=== PATIENT | male | born 1995 | race Caucasian/White ===

== ENCOUNTER 2025-06-27 10:22 | Emergency (ER) | payer OTHER, SELFPAY ==
[2025-06-27 10:39] VITALS: BP 132/76; PULSE 59; RESP 18; TEMP 36.5; O2SAT 97
--- OUTSIDE RECORDS SUMMARY | 2025-06-27 10:48 | XMS_ITS | Clinical Summary ---
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 sx's resolved once medication was stopped. Penicillin VRash12/15/20147199KpsahplqdmoJgpb47/13/2010 Medications MedicationSigDispense QuantityRefillsLast FilledStart DateEnd DateStatus oxyCODONE (ROXICODONE) 5 mg immediate release tablet Indications:Acute left-sided low back pain without sciaticaTake 1 Tablet (5 mg) by mouth every 6 hours if needed for Pain. 10 Tablet 5Active lidocaine 5 % topical patch Indications:Acute left-sided low back pain without sciaticaApply to intact skin to cover most painful area for max 12hr per 24hr period. 30 Patch 5Active methocarbamoL 500 mg tablet Indications:Acute left-sided low back pain without sciaticaTake 1 Tablet (500 mg) by mouth four times daily. 30 Tablet 5Active Active Problems No known active problems Resolved Problems ProblemNoted DateDiagnosed DateResolved DateRight shoulder dislocation on 02/02/1408Adjustment disorder with depressed mood12/04/2012 10/16/2018Routine infant or child health check Immunizations ImmunizationAdministration DatesNext XieUFK4101/21/2003,10/10/1998,01/13/1998, 1997,1997Hepatitis B (Peds)01/13/1998,1997,1997 Inactivated Polio Lkjnohn3201/21/2003,10/10/1998,1997,1997 MENINGOCOCCAL VACCINE 2 VIAL 2MO-55YO (MENVEO)09/22/2013MMR01/21/2003,10/10/1998 Tdap1Varicella Ysjvbru0605/02/2011,07/28/2009 Family History Medical HistoryRelationNameCommentsHypertensionFatherAnesthesia ProblemNeg. DiabetesPaternal GrandmotherHeart attackNo Family HistoryRelationNameStatus CommentsFatherAliveMotherAliveNeg.Paternal Grandmother Social History Tobacco UseTypesPacks/DayYears UsedDateSmoking Tobacco: Every DayCigarettes0.37 Started: 07/10/2018Smokeless Tobacco: Current Tobacco Cessation:Ready to Q uit: No; Counseling Given: Yes Comments:smokes 1 pack per week and uses e-cigarette daily Alcohol UseStandard Drinks/WeekCommentsYes0 (1 standard drink = 0.6 oz pure alcohol)Interpersonal SafetyAnswerDate RecordedAre you being hit, kicked, pushed or yelled at (see row info)?No08/25/2024Interpersonal Safety Abuse 12 - 18Not on file08/25/2024Interpersonal Safety Ambulatory VulnerabilityNot on file08/25/2024 Sex and Gender InformationValueDate RecordedSex Assigned at BirthNot on file Legal LhfOqbp5907/20/2012 5:47 AM CSTGender IdentityNot on fileSexual Orientation Not on file Last Filed Vital Signs Vital SignReadingTime TakenCommentsBlood Arzcmefh076/8102 9:45 PM MEDICAL EDUCATION SPECIALIST Jzkpn6517/19/2025 9:45 PM LPBEwwwvkdnazx69.7 ??C (98 ??F)08/25/2024 9:45 PM MEDICAL EDUCATION SPECIALIST Respiratory Meub412808/25/2024 9:45 PM CSTOxygen Cngmsvvdlg45%08/25/2024 9:45 PM CSTInhaled Oxygen Concentration--Zhlcza867.9 kg (240 lb)08/25/2024 9:43 PM MEDICAL EDUCATION SPECIALIST Vnfmqu722.8 cm (5' 10)08/25/2024 9:43 PM CSTBody Mass Index34.44008/25/2024 9:43 PM MEDICAL EDUCATION SPECIALIST Plan of Treatment Health MaintenanceDue DateLast DoneCommentsHIV for age 15-6506/23/2012Hepatitis C screening for age 18-7906/23/2015Tetanus tfinmdw03Depression screening for age 12+BMI (ht and wt on same day) for age 18+ , 10/16/2018, 11/14/2017, Additional history existsHPV series for age 9-45 (1 - 3-dose SCDM series)2024OVID-19 vaccine series ( - 2024- season)2025Influenza Vaccine (#1)2025Hepatitis B series for 19+Mzydtvcvz18/10/1998, 1997, 1997Pneumococcal series for age 6-49Aged OutNo longer eligible based on patient's age to complete this topic Insurance * Guarantor: MILAD BLUNTAccount TypeRelation to PatientDate of BirthPhone Billing AddressPersonal/Rebjda7609/03/1969 [address] [place] [address] * Guarantor: [employer] MALVIN TALENTAccount TypeRelation to Patient Date of BirthPhoneBilling AddressOcc Health/KlukHkysovwj16/01/2001 [address] [address] * Guarantor: [employer] PXAccount TypeRelation to PatientDate of PhoneBilling AddressOcc Health/OybvWcchajhg80/01/2001 x106 (Home) ATTN: SHANICE CONNOLLY [address] [address] Care Teams Team MemberRelationshipSpecialtyStart DateEnd Date Sarmad Noyola MD [facility] [place] [address] PCP - GeneralFamily Practice12/18/12 Shanice Chauhan, PhD, LP [facility] [place] [address] PsychologistPsychology12/18/12
--- OUTSIDE RECORDS SUMMARY | 2025-06-27 10:48 | XMS_ITS | Clinical Summary ---
Author Organization [facility] Address [address] [place] [address] Care Team Providers Care Supervisor Pairing And Inspecting Name Role Phone Hakan Cole MD Primary Care Provider [phone] Source Comments You are receiving this document as you are listed as the primary care provider,follow-up provider, or the patient has been referred to you for consultation.This is in compliance with the Medicare andAdena Pike Medical Centercaid EHR Incentive Program,which states Providers who transition their patient to another setting of careor provider of care or refers their patient to another provider of care shouldprovide summary care record for each transition of care or referral. [facility] Allergies Active AllergyReactionsCriticalityNoted DateCommentsCephalosporinsHeadache, Nausea,IgwzrkiyGumemz12/10/2009 sx's reported by mother. sx's resolved once medication was stopped. Medications MedicationSigDispense QuantityRefillsLast FilledStart DateEnd DateStatus Ibuprofen (ADVIL) 200 MG capsule Take 200 mg by mouth every 6 hours as needed for Pain.Active azithromycin (AKA ZITHROMAX) 250 MG tablet Take by mouth. Take two tablets on the first day, and take one tablet each day on days 2-5 6 Tab ctive unknown medication Indications: PN:06/13/2005Active Active Problems ProblemNoted DateDiagnosed DateSubjective visual zghdimlttcs52/20/2011 Overview (04/06/2015): Epic Elevated SGOT (AST)06/22/2010 Overview (06/22/2010): Noted June 2010. Maybe related to viral illness or nonspecific, normal variant. Recommend rechecking in 6-12 months. Immunizations ImmunizationAdministration DatesNext CuhLHbC0001/21/2003,01/21/2003,10/10/1998, 10/10/1998,01/13/1998,01/13/1998,1997,1997,1997,1997HepB Ped/Adol (0-18 yrs)01/13/1998,01/13/1998,1997,1997,1997, 1997IPV (Polio)01/21/2003,1997,1997MMR01/21/2003,01/21/2003, 10/10/1998,10/10/1998OPV, Trivalent (Orimune or tOPV)01/21/2003,10/10/1998, 10/10/1998,1997,1997Tdap13356Esdozftwy86/22/2010 Family History Medical HistoryRelationNameCommentsDiabetes, Type IIPaternal GrandmotherRelation NameStatusCommentsPaternal Grandmother Social History Tobacco UseTypesPacks/DayYears UsedDateSmoking Tobacco: NeverSmokeless Tobacco: NeverAlcohol UseStandard Drinks/WeekCommentsNot Asked0 (1 standard drink = 0.6 oz pure alcohol)Sex and Gender InformationValueDate RecordedSex Assigned at BirthNot on fileLegal RnfLaal62/10/2012 5:58 AM CDTGender IdentityNot on file Sexual OrientationNot on file Last Filed Vital Signs Vital SignReadingTime TakenCommentsBlood Foksqher287/5401 8:06 AM SCHOOL PLANT CONSULTANT Oqxib789707/20/2010 8:06 AM KBRYlyawbvwzfu06.1 ??C (97 ??F)09/17/2010 9:12 AM CDT Respiratory Rate--Oxygen Saturation--Inhaled Oxygen Concentration--Bxrver86.8 kg (176 lb)09/17/2010 9:12 AM EKFVonaiz398.9 cm (5' 6.5)07/13/2010 8:34 AM CSTBody Mass Index-- Plan of Treatment Health MaintenanceDue DateLast DoneCommentsHep C Screening (Preventive Services) 1997Varicella Vaccine (2 of 2 - 2-dose childhood series)10/20/2009 07/28/2009HIV Screening (Preventive Services)2013dult Preventive Visit 2015DTaP/Tdap/Td Vaccine (7 - Tdap), 01/21/2003, 01/21/2003, Additional history existsCOVID-19 Vaccine ( - 2024- season) 2025Influenza Vaccine (#1)2025Zoster/Shingles Vaccine (1 of 2) 2047HepB YdavaodPvpchdlan94/10/1998, 01/13/1998, 1997, Additional history existsIPV (Polio) AaqgffcSovvmutff72/18/2003, 01/21/2003, 10/10/1998, Additional history existsHPV Vaccine (No Doses Required)CompletedHepA Vaccine Aged OutNo longer eligible based on patient's age to complete this topicHib VaccineAged OutNo longer eligible based on patient's age to complete this topic MCV4 VaccineAged OutNo longer eligible based on patient's age to complete this topicMeningococcal B VaccineAged OutNo longer eligible based on patient's age to complete this topicPneumococcal VaccineAged OutNo longer eligible based on patient's age to complete this topic Insurance [place] [id number] * Guarantor: Lissette Reynoso TypeRelation to PatientDate of BirthPhone Billing AddressPersonal/UoswvlQzxytp12/[birth year]/[address] [place] [address] Care Teams Team MemberRelationshipSpecialtyStart DateEnd Date Hakan Cole MD [address] [facility] [place] [id number] PCP - General07/13/10
--- NOTE | 2025-06-27 10:52 | CRLHL7_ITS ---
For Patients: As a result of the Cures Act, medical imaging exams and procedure reports are released immediately into your electronic medical record. You may view this report before your referring provider. If you have questions, please contact your health care provider. Indication: Fall, landed on rain midtrachea, redness and pain Technique: Volumetric multidetector CT images of the cervical soft tissues were obtained after the administration of low osmolar intravenous contrast. 110 cc Isovue 370 low osmolar intravenous contrast Comparison: None available. Findings: The partially visualized brain parenchyma is normal in attenuation without evidence of abnormal enhancement. The orbits and their contents are within normal limits. The paranasal sinuses are clear. The mastoid air cells are clear. The nasopharynx is unremarkable. The fossae of Rosenmuller are clear. Mild prominence of the palatine tonsils is incidentally noted. Evaluation of the oropharynx is limited by motion artifact. The hypopharynx is clear. The deep spaces of the neck are otherwise preserved. There is demonstration of mild asymmetry of the vocal folds with a prominent left laryngeal ventricle. The thyroid gland is normal in attenuation. There is no evidence of pathologically enlarged cervical lymph node. Mild degenerative changes of the cervical spine without acute osseous abnormality. The lung apices are clear. The cervical vertebral body heights are grossly maintained with mild straightening of the normal cervical lordosis. There is no significant spondylolisthesis. Impression: No definite evidence of obvious acute traumatic injury of the neck. Patent airway. Incidental note made of prominence of the left laryngeal ventricle which can be associated with vocal fold dysfunction. Correlate with history of hoarseness. Please note that all CT scans at this facility use dose modulation, iterative reconstruction, and/or weight-based dosing when appropriate to reduce radiation dose to as low as reasonably achievable. Dictated by Leonardo Chen MD @ 06/27/2025 11:46:07 AM (Electronically Signed)
--- NOTE | 2025-06-27 10:55 | ED.GENADULT ---
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 had a bowel movement. He was reaching back to flush, kind of got tunnel vision lightheaded and next thing he knew he woke up on the floor. His says he was out for a minute or 2. There was a floor drain and a garbage can on the floor and he landed with his neck on the floor drain. He has a red peggy across his neck which he thinks is from the garbage can but pain is primarily over the mid trachea which is not in line with where this red peggy is. He also has a couple of red liu on the side of his right upper chest kind of by just above his clavicle, he has in quite sure what made those liu but he does not have any pain there. He passes out every once a while, usually with rapid position changes. He does not have any chest pain or difficulty breathing, headache. Has not had any recent illness or injury aside from today. He tried to go to work but has ongoing pain in his neck and it hurts to swallow. No breathing difficulties. General health is good. Related Data Home Medications ?Medication ?Instructions ?Recorded ?Confirmed No Known Home Medications 06/27/25 06/27/25 Allergies Allergy/AdvReac Type Severity Reaction Status Date / Time Penicillins Allergy Severe Verified 06/27/25 11:30 Review of Systems Status of ROS: Reports: 6 or more systems reviewed and unremarkable except as noted in History and below Exam Narrative: Exam Narrative: Vital signs reviewed In general, an alert, nontoxic young man. Voice is normal. Head: Normocephalic, atraumatic. Eyes: Sclera clear. Pupils equal and reactive. ENT: Mucous membranes moist. Throat is normal, airways patent. Neck: Supple without adenopathy. He has a red linear peggy that runs from the right side of his neck across to about the carotid on the left. He does not have any tenderness over the carotids, no swelling or redness there. He does have focal tenderness of the trachea. There is no palpable defect, no crepitus, no swelling or hematoma. No stridor. Heart: Regular rate and rhythm without murmur. Lungs: Clear. No increased work of breathing, crackles or wheezes. Neurologic: Alert, conversant. Speech fluent, face symmetric. Moves all extremities equally. Skin: Warm, dry well perfused. Affect: Normal. Const: Vital Signs, click to edit/add: Vital Signs - 24 hr 06/27/25 10:39 Temperature 97.7 F Pulse Rate [Right Pulse Oximeter] 59 L Respiratory Rate 18 Blood Pressure [Ri ght Upper Arm] 132/76 Pulse Oximetry 97 Oxygen Delivery Me thod Room Air Course Course ED Course: Patient presents with anterior neck trauma related to a syncopal episode this morning. The syncopal episode sounds benign likely vasovagal in nature, will get an EKG. With regard to his throat trauma, it has been about 6 hours, there is no evidence of expanding hematoma or airway compromise. I do think imaging is warranted to look for any more subtle injuries to the trachea. I reviewed his CT scan, I did not see any abnormal swelling or obvious traumatic injuries. Radiology reads his scan is essentially negative, they note prominence of the left laryngeal ventricle which can be associated with vocal fold dysfunction, which can be associated with hoarseness. Patient's voice is normal, I think this is likely an incidental finding of no current clinical significance. With regard to his syncope, he had an EKG which by my review shows a regular bradycardia, ventricular rate of 57. His QT corrected is 443, indices are normal, no acute ST segment changes and no significant T-wave abnormalities. His P-wave is deflected downward throughout the inferolateral leads. I have discussed all this with him. We talked about ibuprofen and Tylenol, ice as needed. Reviewed reasons to return such as swelling of the neck, any difficulty breathing, inability to swallow secretions, or other worsening. I this would include recurrent syncope. In the meantime, I am going to put a ZIO patch on. This episode today still sounds most likely be vasovagal but with his EKG findings would just like to make sure he is not having any other arrhythmias. Recommend primary care follow-up following that to review results and see if any other evaluation such as echo would be warranted. I have him off work for the next few days so that he can rest and recover. Diagnosis: Anterior neck contusion. Syncope. Abnormal EKG. Vital Signs Vital signs: Initial Vital Signs Temperature 97.7 F 06/27/25 10:39 Temperature Source Temporal Artery Scan 06/27/25 10:39 Pulse Rate 59 L 06/27/25 10:39 Pulse Rhythm Regular 06/27/25 10:39 Pulse Strength 3+ Normal 06/27/25 10:39 Respiratory Rate 18 06/27/25 10:39 Blood Pressure 132/76 06/27/25 10:39 Blood Pressure Mean 94 06/27/25 10:39 Blood Pressure Position Sitting 06/27/25 10:39 Pulse Oximetry 97 06/27/25 10:39 Oxygen Delivery Method Room Air 06/27/25 10:39 Vital Signs Temperature 97.7 F 06/27/25 10:39 Pulse Rate 59 L 06/27/25 10:39 Respiratory Rate 18 06/27/25 10:39 Blood Pressure 132/76 06/27/25 10:39 Pulse Oximetry 97 06/27/25 10:39 Oxygen Delivery Method Room Air 06/27/25 10:39 Temperature 97.7 F 06/27/25 10:39 Pulse Rate 59 L 06/27/25 10:39 Respiratory Rate 18 06/27/25 10:39 Blood Pressure 132/76 06/27/25 10:39 Pulse Oximetry 97 06/27/25 10:39 Oxygen Delivery Method Room Air 06/27/25 10:39 Medical Decision Making Imaging Data CT- Other: Attestation: I have reviewed the pertinent imaging results. Radiologist's impression: Patient: Ricardo Reynoso MR#: [id number] : 1995 Acct:[id number] Loc: ED Service Date: 06/27/[address]: Ordering Physician: Ana Maria Dorado M.D. Date of Service: 06/27/25 Procedure(s): CT soft tissue neck w con Accession Number(s): [id number] cc: Ana Maria Dorado M.D.; Sarmad Noyola M.D.~ For Patients: As a result of the Cures Act, medical imaging exams and procedure reports are released immediately into your electronic medical record. You may view this report before your referring provider. If you have questions, please contact your health care provider. Indication: Fall, landed on rain midtrachea, redness and pain Technique: Volumetric multidetector CT images of the cervical soft tissues were obtained after the administration of low osmolar intravenous contrast. 110 cc Isovue 370 low osmolar intravenous contrast Comparison: None available. Findings: The partially visualized brain parenchyma is normal in attenuation without evidence of abnormal enhancement. The orbits and their contents are within normal limits. The paranasal sinuses are clear. The mastoid air cells are clear. The nasopharynx is unremarkable. The fossae of Rosenmuller are clear. Mild prominence of the palatine tonsils is incidentally noted. Evaluation of the oropharynx is limited by motion artifact. The hypopharynx is clear. The deep spaces of the neck are otherwise preserved. There is demonstration of mild asymmetry of the vocal folds with a prominent left laryngeal ventricle. The thyroid gland is normal in attenuation. There is no evidence of pathologically enlarged cervical lymph node. Mild degenerative changes of the cervical spine without acute osseous abnormality. The lung apices are clear. The cervical vertebral body heights are grossly maintained with mild straightening of the normal cervical lordosis. There is no significant spondylolisthesis. Impression: No definite evidence of obvious acute traumatic injury of the neck. Patent airway. Incidental note made of prominence of the left laryngeal ventricle which can be associated with vocal fold dysfunction. Correlate with history of hoarseness. Please note that all CT scans at this facility use dose modulation, iterative reconstruction, and/or weight-based dosing when appropriate to reduce radiation dose to as low as reasonably achievable. Dictated by Leonardo Chen MD @ 06/27/2025 11:46:07 AM Discharge Plan Discharge Clinical Impression: Vasovagal syncope, Contusion of neck Patient Disposition: Home, Self-Care Condition: Stable Instructions: Syncope (DC) Additional Instructions: CT scan does not show any evidence of concerning injury to your neck. At this time, it looks as if your symptoms are related more to soft tissue injury. It is okay to use ibuprofen 400 mg plus or minus Tylenol 1000 mg as needed for pain. Ice may be helpful as well, held to the outside of your neck. If your symptoms are worsening rather than stable to improving, if you have changes in your voice, unable to swallow secretions, difficulty breathing, etc. you should return to the ER right away. Otherwise, see primary care if not gradually improving over the next week or so. With regard to your fainting episode, this is most likely related to what is called a vasovagal spell. This is benign. Your EKG is subtly abnormal, not in a likely concerning way, but I would recommend you follow-up with primary care to further review and see if any other evaluation would be warranted. In the meantime, we are placing a ZIO patch, which is awaiting monitor your heart rhythm remotely. Prescriptions: No Action No Known Home Medications Follow Up/Referrals: Sarmad Noyola MD [Primary Care Provider, Family Practice] Stand Alone Forms: [employer]format[employer] Info Instructions
== END 2025-06-27 12:36 | disposition home or self-care (01) ==
PROVIDERS: Emergency Provider Emergency Medicine; PCP Family Medicine
DX: R55 Syncope and collapse (principal); S10.93XA Contusion of unspecified part of neck, initial encounter; W18.00XA Striking against unspecified object with subsequent fall, initial encounter; Y92.094 Garage of other non-institutional residence as the place of occurrence of the external cause
CPT/HCPCS: 70491; 93005; 93246; 99284; 99285; Q9967